=== PATIENT | female | born 1985 | race American Indian/Alaskan Native ===

== ENCOUNTER 2017-03-30 04:34 | Emergency (ER) | payer BC, OTHER ==
[2017-03-30 07:29] VITALS: BP 108/69
--- NOTE | 2017-03-30 07:43 | Emergency Department Report ---
ED ENT HPI - General Chief complaint: Dental/Oral Stated complaint: COLD SORE ON LIPS Time Seen by Provider: 03/30/17 07:19 Source: patient Mode of arrival: Ambulatory Limitations: Language Barrier - History of Present Illness Initial comments: This is a 31-year-old female nontoxic, well nourished in appearance, no acute signs of distress presents to the ED with c/o of cold sores of the lower lip. Patient describes also as itching and painful. Patient denies any swelling, pus , drainage, fever, chills, nausea, vomiting, chest pain or shortness of breath. Patient denies any allergies or past mental history. Patient states she has been using [id number] topical ointments with no relief. MD complaint: other (cold sore) -: week(s) (1) Location: lower lip Severity: mild Severity scale (0 -10): 6 Quality: burning Consistency: constant Improves with: none Worsens with: none Associated Symptoms: denies: fever, cough, gum swelling, toothache, pain with swallowing, sore throat, tinnitus, hearing loss, discharge from ear, rhinorrhea - Related Data Home Medications Medication Instructions Recorded Confirmed Last Taken Multivitamin [Multi Vitamin Daily] 1 tab PO DAILY 10/18/13 10/18/13 10/18/13 09: 00 Previous Rx's Medication Instructions Recorded Last Taken Type HYDROcodone/ACETAMINOPHEN [[place] 1 each PO Q6HR #020 tablet 10/19/13 Unknown Rx 5/325 Tablet] Ibuprofen [Motrin] 600 mg PO Q8H PRN #60 tablet 10/19/13 Unknown Rx predniSONE [Deltasone] 20 mg PO QDAY #5 tab 10/19/13 Unknown Rx Famciclovir [Famvir] 750 mg PO Q12H 1 Days 03/30/17 Unknown Rx Allergies Allergy/AdvReac Type Severity Reaction Status Date / Time No Known Allergies Allergy Verified 10/19/13 01:14 ED Dental HPI - General Chief complaint: Dental/Oral Stated complaint: COLD SORE ON LIPS Time Seen by Provider: 03/30/17 07:19 Source: patient Mode of arrival: Ambulatory Limitations: Language Barrier - Related Data Home Medications Medication Instructions Recorded Confirmed Last Taken Multivitamin [Multi Vitamin Daily] 1 tab PO DAILY 10/18/13 10/18/13 10/18/13 09: 00 Previous Rx's Medication Instructions Recorded Last Taken Type HYDROcodone/ACETAMINOPHEN [[place] 1 each PO Q6HR #020 tablet 10/19/13 Unknown Rx 5/325 Tablet] Ibuprofen [Motrin] 600 mg PO Q8H PRN #60 tablet 10/19/13 Unknown Rx predniSONE [Deltasone] 20 mg PO QDAY #5 tab 10/19/13 Unknown Rx Famciclovir [Famvir] 750 mg PO Q12H 1 Days 03/30/17 Unknown Rx Allergies Allergy/AdvReac Type Severity Reaction Status Date / Time No Known Allergies Allergy Verified 10/19/13 01:14 ED Review of Systems ROS: Stated complaint: COLD SORE ON LIPS Other details as noted in HPI Constitutional: denies: chills, fever Eyes: denies: eye pain, eye discharge, vision change ENT: denies: ear pain, throat pain Respiratory: denies: cough, shortness of breath, wheezing Cardiovascular: denies: chest pain, palpitations Endocrine: no symptoms reported Gastrointestinal: denies: abdominal pain, nausea, diarrhea Genitourinary: denies: urgency, dysuria, discharge Musculoskeletal: denies: back pain, joint swelling, arthralgia Skin: denies: rash, lesions Neurological: denies: headache, weakness, paresthesias Psychiatric: denies: anxiety, depression Hematological/Lymphatic: denies: easy bleeding, easy bruising ED Past Medical Hx - Past Medical History Previous Medical History?: No - Surgical History Past Surgical History?: No - Social History Smoking Status: Never Smoker Substance Use Type: Alcohol, Marijuana - Medications Home Medications: Home Medications Medication Instructions Recorded Confirmed Last Taken Type Multivitamin [Multi Vitamin Daily] 1 tab PO DAILY 10/18/13 10/18/13 10/18/13 09: 00 History HYDROcodone/ACETAMINOPHEN [[place] 1 each PO Q6HR #020 tablet 10/19/13 Unknown Rx 5/325 Tablet] Ibuprofen [Motrin] 600 mg PO Q8H PRN #60 tablet 10/19/13 Unknown Rx predniSONE [Deltasone] 20 mg PO QDAY #5 tab 10/19/13 Unknown Rx Famciclovir [Famvir] 750 mg PO Q12H 1 Days 03/30/17 Unknown Rx ED Physical Exam - General Limitations: Language Barrier General appearance: alert, in no apparent distress - Head Head exam: Present: atraumatic, normocephalic, normal inspection - Eye Eye exam: Present: normal appearance, PERRL, EOMI. Absent: scleral icterus, conjunctival injection, nystagmus, periorbital swelling, periorbital tenderness Pupils: Present: normal accommodation - ENT ENT exam: Present: normal exam, normal orophraynx, mucous membranes moist, TM's normal bilaterally, normal external ear exam - Neck Neck exam: Present: normal inspection, full ROM. Absent: tenderness, meningismus, lymphadenopathy, thyromegaly - Respiratory Respiratory exam: Present: normal lung sounds bilaterally. Absent: respiratory distress, wheezes, rales, rhonchi, stridor, chest wall tenderness, accessory muscle use, decreased breath sounds, prolonged expiratory - Cardiovascular Cardiovascular Exam: Present: regular rate, normal rhythm, normal heart sounds. Absent: bradycardia, tachycardia, irregular rhythm, systolic murmur, diastolic murmur, rubs, gallop - GI/Abdominal GI/Abdominal exam: Present: soft, normal bowel sounds. Absent: distended, tenderness, guarding, rebound, rigid, diminished bowel sounds - Rectal Rectal exam: Present: deferred - Extremities Exam Extremities exam: Present: normal inspection, full ROM, normal capillary refill. Absent: tenderness, pedal edema, joint swelling, calf tenderness - Back Exam Back exam: Present: normal inspection, full ROM. Absent: tenderness, CVA tenderness (R), CVA tenderness (L), muscle spasm, paraspinal tenderness, vertebral tenderness, rash noted - Neurological Exam Neurological exam: Present: alert, oriented X3, CN II-XII intact, normal gait, reflexes normal - Psychiatric Psychiatric exam: Present: normal affect, normal mood - Skin Skin exam: Present: warm, dry, intact, normal color. Absent: rash - Other Other exam information: 0.5cm x1 cold sore to the lower lip region. No swelling or pus noted. No induration or flutance. No abscess. ED Course Vital Signs 03/30/17 03/30/17 03/30/17 04:38 04:46 07:28 Temperature 98.1 F Pulse Rate 87 69 Respiratory 18 18 18 Rate Blood Pressure 108/56 108/56 Blood Pressure 108/69 [Left] O2 Sat by Pulse 100 Oximetry - Reevaluation(s) Reevaluation #1: 03/30/17 07:45 Patient is speaking in full sentences with no signs of distress noted. ED Medical Decision Making - Medical Decision Making 31-year-old female that presents with herpes simplex virus type I. I will treat patient with Famciclovir 750 mg twice daily for one day. Patient was instructed not to consume any alcohol while taking prescription. Patient was instructed to Follow-up with a primary care doctor in 3-5 days or if symptoms worsen and continue return to emergency room as soon as possible. At time time of discharge, the patient does not seem toxic or ill in appearance. No acute signs of distress noted. Patient agrees to discharge treatment plan of care. No further questions noted by the patient. Critical care attestation.: If time is entered above; I have spent that time in minutes in the direct care of this critically ill patient, excluding procedure time. ED Disposition Clinical Impression: Oral herpes simplex infection Disposition: TO HOME OR SELFCARE Is pt being admited?: No Does the pt Need Aspirin: No Condition: Stable Instructions: Oral Herpes Simplex Virus Infections (ED), Famciclovir (By mouth) Additional Instructions: Follow-up with a primary care doctor in 3-5 days or if symptoms worsen and continue return to emergency room as soon as possible. Do not consume any alcohol while taking prescription Prescriptions: Famciclovir [Famvir] 750 mg PO Q12H 1 Days Referrals: ELIAS ROWE MD [Primary Care Provider] - 3-5 Days DAYANA VARMA MD [Staff Physician] - 3-5 Days [facility] [Outside] - 3-5 Days [facility] [Outside] - 3-5 Days Forms: Work/School Release Form(ED)
== END 2017-03-30 08:02 | disposition home or self-care (01) ==
LOC: ED 04:34
DX: B00.1 Herpesviral vesicular dermatitis (principal); F12.10 Cannabis abuse, uncomplicated
CPT/HCPCS: 99282